=== PATIENT | female | born 1960 | race Caucasian/White ===

== ENCOUNTER 2016-06-22 14:35 | Inpatient (IN) | payer OTHER ==
[~2016-06-22] VITALS: Ht 170.2 cm; Wt 80.7 kg
--- NOTE | ~2016-06-22 | EKG ---
[place] [address] [facility] [place] [address] ELECTROCARDIOGRAM REPORT Name: LIZ ARMIJO Room #: 214-P ADM IN M.R.#: [id number] Admission: 06/22/16 Attend Phys: Kelly Ferguson Discharge: Date of : 64 Report #: [id number] THIS REPORT FOR: //name// [facility] ED Test Date: 2016-06-22 Test Time: 16:31:41 Pat Name: LIZ ARMIJO Department: Room: 214 Gender: F Requisition Approver: [id number] : 1960 Requested By: Rogers Munoz Order Number: [id number] MD: Gian Sheldon Measurements Intervals [place] Rate: 68 P: 71 GA: 157 QRS: 17 QRSD: 90 T: 26 QT: 426 QTc: 454 Interpretive Statements Sinus rhythm No significant abnormality Compared to ECG 05/02/2016 12:01:15 No significant change was found Electronically Signed On 06-23-2016 14:23:42 GUN EXAMINER by Gian Sheldon [email or web address] <ELECTRONICALLY SIGNED> By: Gian Sheldon MD, [facility] 06/23/16 1423 30 30 Gian Sheldon MD, [facility] /EPI
--- NOTE | ~2016-06-22 | EKG ---
[address] [employer] [place] [address] ELECTROCARDIOGRAM REPORT Name: LIZ ARMIJO Room #: 214-P ADM IN M.R.#: [id number] Admission: 06/22/16 Attend Phys: Kelly Ferguson Discharge: Date of : 64 Report #: [id number] THIS REPORT FOR: //name// [facility] ED Test Date: 2016-06-22 Test Time: 15:12:02 Pat Name: LIZ ARMIJO Department: Room: 214 Gender: F Director Regulatory Agency: [id number] : 1960 Requested By: Rogers Munoz Order Number: [id number] MD: Gian Sheldon Measurements Intervals [place] Rate: 70 P: 68 [place]: 152 QRS: 3 QRSD: 88 T: 30 QT: 417 QTc: 450 Interpretive Statements Sinus rhythm No significant abnormality Compared to ECG 05/02/2016 12:01:15 No significant change was found Electronically Signed On 06-23-2016 14:21:32 ASPHALT RAKER by Gian Sheldon [email or web address] <ELECTRONICALLY SIGNED> By: Gian Sheldon MD, [facility] 06/23/16 1421 11 11 Gian Sheldon MD, [facility] /EPI
[~2016-06-22 14:35] MED LIST: ALBUTEROL INH; ALBUTEROL2.5 MG/0.5 INH; ALPRAZOLAM; ALPRAZOLAM 0.50.5 M1; ALPRAZOLAM PO; AMBIEN; AMBIEN PO; AMITRIPTYLINE H10 M3 PO; AMITRIPTYLINE H25 M2 PO; CALCIUM + D SO1 EACH PO; CIPROFLOXACIN500 M3 PO; CLONIDINE HCL0.1 MG PO; COREG PO; COUMADIN PO; CYCLOBENZAPRINE10 MG PO; CYMBALTA; CYMBALTA20 MG PO; CYMBALTA60 MG PO; DUONEB 2.5-0.5 M3 ML INH; FLAX OIL1000 MG; FLEXERIL PO; HYDROCODON-ACE1 EAC7 PO; HYDROCODONE-AP1 EAC6 PO; HYDROXYZINE HCL25 M1; IBUPROFEN 600600 M1 PO; IBUPROFEN 800800 M1 PO; INDOMETHACIN 2525 MG PO; K-DUR 20 MEQ T20 MEQ PO; KLOR-CON 1010 MEQ PO; LEVAQUIN 500 M500 M2 PO; LEVAQUIN 750 M750 MG PO; LISINOPRIL20 MG PO; LOVENOX SC; MIRALAX17 GM PO; MIRALAX255 GM PO; MIRTAZAPINE45 MG PO; NAPROSYN500 MG PO; NITROGLYCERIN0.4 MG SUBLING; NORCO 5-325 TA1 EACH PO; OMEGA-3100 MG; ONDANSETRON HCL4 M2 PO; OSELB75 PO; PERCOCET 5-3251 EACH PO; PHENERGAN 25 MG25 M1 PO; POTASSIUM20 PO; PRENATAL PLUS1 EACH PO; PROAIR HFA8.5 GM; PROAIR HFA8.5 GM INH; PROMETHAZINE/C118 ML PO; PROTONIX 20 MG20 M1 PO; REMERON15 MG PO; REMERON45 MG PO; ROBAXIN 750 MG750 M1 PO; ROBITUSSIN100 MG/53; SENNA PO; SIMVASTATIN10 MG; SPIRIVA INH; TESSALON PERLE100 MG PO; TYLENOL325 MG PO; VALIUM2 MG PO; VENTOLIN HFA 1818 GM INH; VITAMIN B-12500 MCG PO; VITAMIN B12-FO1 EAC1 PO; XANAX1 MG PO; XARELTO10 M1; XARELTO20 MG PO; ZANTAC 150MG T150 M1 PO; ZANTAC 150MG T150 MG PO; ZOFRAN ODT4 MG PO; ZOFRAN4 MG PO; ZYRTEC PO; ZYRTEC10 M2 PO
[2016-06-22 14:37] VITALS: BP 134/86
[2016-06-22 15:21] LABS: ABSOLUTE NEUTROPHILS 3.7 thou/uL (1.4-8.2); BASOPHILS 0.7 % (0.0-2.0); EOSINOPHILS 3.9 % (0.0-3.0); HEMATOCRIT 38.3 % (37.0-47.0); HEMOGLOBIN 13.3 gm/dL (12.0-15.0); LYMPHOCYTES 30.9 % (24.0-44.0); MCH 28.7 pg (26.0-34.0); MCHC 34.6 % (28.0-37.0); MCV 82.8 fL (80.0-100.0); MONOCYTES 6.4 % (1.0-8.0); PLATELET COUNT 112 thou/uL (150-400); POLYS 58.1 % (36.0-66.0); RBC 4.63 mil/uL (4.20-5.00); RDW 12.9 % (10.5-14.5); WBC 6.3 thou/uL (4.0-11.0)
[2016-06-22 15:25] LABS: MANUAL DIFF NO
[2016-06-22 15:31] LABS: CALCIUM 9.2 mg/dL (8.5-10.1); CREATININE 0.8 mg/dL (0.6-1.3)
[2016-06-22 15:32] LABS: POTASSIUM 4.8 mmol/L (3.5-5.1)
[2016-06-22 16:04] LABS: ALBUMIN 3.8 g/dL (3.4-5.0); TOTAL BILIRUBIN 0.5 mg/dL (<0.1-1.0); TOTAL PROTEIN 7.6 g/dL (6.4-8.2); TROPONIN-I 0.16 ng/mL (<0.04-0.07)
[2016-06-22 18:46] VITALS: BP 149/82
[2016-06-22 23:34] VITALS: BP 112/78
[2016-06-23 04:08] VITALS: BP 110/65
[2016-06-23 05:15] LABS: ALBUMIN 3.2 g/dL (3.4-5.0); ALKALINE PHOSPHATASE 79 U/L (46-116); ANION GAP 8 mmol/L (7-16); BUN 18 mg/dL (7-18); CALCIUM 8.4 mg/dL (8.5-10.1); CHLORIDE 107 mmol/L (98-107); CHOLESTEROL 141 mg/dL (<200); CO2 29 mmol/L (21-32); GLUCOSE 78 mg/dL (70-99); HDL CHOLESTEROL 43 mg/dL (>40); LDL CHOLESTEROL 83 mg/dL (<100); POTASSIUM 4.3 mmol/L (3.5-5.1); SGOT 7 U/L (15-37); SGPT 13 U/L (30-65); SODIUM 144 mmol/L (136-145); TC:HDL 3.3 Ratio (Not establshd); TOTAL BILIRUBIN 0.4 mg/dL (<0.1-1.0); TOTAL PROTEIN 5.9 g/dL (6.4-8.2); TRIGLYCERIDE 79 mg/dL (<150); VLDL 16 mg/dL (<40)
[2016-06-23 05:18] LABS: SERUM ASSESSMENT Clear
[2016-06-23 10:15] VITALS: BP 106/65
[2016-06-23] MEDS ORDERED: CYCLOBENZAPRINE5 MG PO (10:21)
[2016-06-23 11:43] VITALS: BP 127/73
[2016-06-23 13:02] VITALS: BP 127/73
[2016-06-23 13:20] VITALS: BP 127/73
[2016-06-23 13:23] VITALS: BP 127/73
[2016-07-28] MEDS ORDERED: LEVAQUIN 750 M750 MG PO (18:24)
[2016-08-17] MEDS ORDERED: ALEVE220 MG PO (16:34)
[2016-08-17] MEDS ORDERED: TESSALON PERLE100 MG PO (16:34)
== END 2016-06-23 14:45 | disposition home or self-care (01) | DRG 281 ==
LOC: ER 14:35 → EROBS 17:19 → ER 17:19 → EROBS 18:14 → 2N 18:14
PROVIDERS: Emergency Medicine; Hospitalist
DX: I21.3 ST elevation (STEMI) myocardial infarction of unspecified site (principal); E44.1 Mild protein-calorie malnutrition; F41.9 Anxiety disorder, unspecified; J44.9 Chronic obstructive pulmonary disease, unspecified; S13.9XXA Sprain of joints and ligaments of unspecified parts of neck, initial encounter; F17.210 Nicotine dependence, cigarettes, uncomplicated; M79.2 Neuralgia and neuritis, unspecified; I50.9 Heart failure, unspecified; Z86.711 Personal history of pulmonary embolism; Z88.1 Allergy status to other antibiotic agents; Z88.8 Allergy status to other drugs, medicaments and biological substances; I25.2 Old myocardial infarction; Z90.49 Acquired absence of other specified parts of digestive tract; Z87.01 Personal history of pneumonia (recurrent); Z88.2 Allergy status to sulfonamides
CPT/HCPCS: 10081

== ENCOUNTER 2017-03-21 15:08 | Observation (INO) | payer OTHER ==
[~2017-03-21] VITALS: Ht 170.2 cm; Wt 85.9 kg
--- NOTE | ~2017-03-21 | H ---
[facility] [place] [address] HISTORY AND PHYSICAL Name: LIZ ARMIJO Room #: 211-P [facility]..#: [id number] Admission: 03/21/17 Attend Phys: Wolf Landa MD Discharge: Date of : 64 Report #: [id number] THIS REPORT FOR: //name// CC: SHAQUILLE physician/PCP Wolf Landa DATE OF SERVICE: 03/21/2017 CHIEF COMPLAINT: Shortness of breath, chest pain. HISTORY OF PRESENT ILLNESS: The patient is a 57-year-old female with history of hypertension, coronary artery disease status post ID, history of COPD who presented to the Emergency Room complaining of cough with expectoration, chest pain and shortness of breath. Symptoms have been ongoing over the last 1 week. She has had cough with yellow to brown sputum. No history of any fever or chills. Workup in the Emergency Room included a chest x-ray which showed no acute process. EKG showed no acute abnormality. Troponin was mildly elevated. Initial troponin was 0.08 and repeat was 0.16. The patient has had intermittent pain over the retrosternal area primarily with coughing. She has had mild shortness of breath. She does have history of PE and has been on Xarelto. PAST MEDICAL HISTORY: Significant for: 1. Hypertension, history of CHF, history of PE on Xarelto. 2. History of anxiety, depression. 3. History of COPD. 4. 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 ALLERGIES: ALLERGIC TO SULFA, PREDNISONE, AND AMOXICILLIN. Please look at the nursing documentation. HOME MEDICATIONS: Reviewed, please look at the nursing documentation for home meds. Home meds were reviewed. SOCIAL HISTORY: Smokes half a pack a day. No alcohol abuse or illicit drug abuse. REVIEW OF SYSTEMS: CONSTITUTIONAL: No recent weight loss, weight gain. No fever or chills. EYES: No change in vision. THROAT: Denies any sore throat. CARDIOVASCULAR: As above. RESPIRATORY: As above. GASTROINTESTINAL: She did have some nausea, but no vomiting, no diarrhea, no abdominal pain. [facility] [address] [place] [address] HISTORY AND PHYSICAL Name: LIZ ARMIJO Room [facility]: [facility]..#: [id number] Admission: 03/21/17 Attend Phys: Wolf Landa MD Discharge: Date of : 64 Report #: [id number] GENITOURINARY: No dysuria, hematuria. NEUROLOGIC: No focal numbness or weakness of the extremity. PSYCHIATRIC: No anxiety or depression. A 12-point review of system is negative other than the positive and negative dictated in the history of present illness and the review of system. PHYSICAL EXAMINATION: VITAL SIGNS: Reviewed. Blood pressure is 133/81, heart rate is 82 per minute, afebrile. GENERAL: The patient is awake and alert, not in acute respiratory distress. EYES: Pupils equal, reactive to light, nonicteric, conjunctivae. THROAT: Mildly dry oral mucosa. NECK: Supple, no JVD, no bruit, no lymphadenopathy. CARDIOVASCULAR SYSTEM: S1, S2 heard, no S3. There is systolic murmur in the aortic area. CHEST: Bilateral air entry equally present on both sides. There are bilateral scattered wheeze noted. ABDOMEN: Soft, bowel sounds present, no mass, no organomegaly, no tenderness. PERIPHERY: No pedal edema. No calf tenderness. Dorsalis pedis 1+. NEUROLOGICAL: No gross motor or sensory deficit. LABORATORY DATA: Reviewed. EKG showed no acute ST or T-wave changes. Troponin 0.08 and 0.16. White count 6.7, normal hemoglobin and hematocrit, platelet is low at 76 and she has been chronically low at 76. INR is 1.2. BUN and creatinine are within normal limits. AST and ALT are within normal limit. Chest x-ray showed no acute abnormality. ASSESSMENT: 1. Acute bronchitis. The patient will be continued on DuoNebs and levofloxacin. 2. Elevated troponin could be stress related. We will get serial troponin. The patient will be admitted to telemetry floor. Cardiology has been consulted. We will obtain echocardiogram to evaluate left ventricular function. She will be continued on aspirin and Xarelto. 3. History of pulmonary embolism, on Xarelto, which will be continued. 4. History of hypertension. The patient will be continued on present home medication. We will monitor. 5. Deep venous thrombosis prophylaxis. The patient is already on Xarelto. 6. Chronic obstructive pulmonary disease/tobaccoism. The patient has been strongly advised to stop smoking. 7. History of coronary artery disease with myocardial infarction in 2016. The patient will be on aspirin . 8. Chronic thrombocytopenia, unknown etiology. [facility] [address] [place] [address] HISTORY AND PHYSICAL Name: LIZ ARMIJO Room #: 211-P [facility] MStefanieRStefanie#: [id number] Admission: 03/21/17 Attend Phys: Wolf Landa MD Discharge: Date of : 64 Report #: [id number] Treatment plan has been explained to the patient in detail. <ELECTRONICALLY SIGNED> By: Wolf Landa MD 03/22/17 1353 1855 1944 Wolf Landa MD /nt
--- NOTE | ~2017-03-21 | 2DMMODE ---
[facility] [address] [place] [address] 2 D/M-MODE ECHOCARDIOGRAM Name: LIZ ARMIJO Room #: 211-P ADM IN M.R.#: [id number] Admission: 03/21/17 Attend Phys: Angeline Laguna Discharge: Date of : 64 Date of Service: 03/22/17 1404 Report #: [id number] THIS REPORT FOR: //name// APPROVED REPORT Study performed: 03/22/2017 11:45:05 EXAM: Comprehensive 2D, Doppler, and color-flow Echocardiogram Patient Location: Bedside Room #: 211 Status: on-call BSA: 1.95 HR: 65 bpm BP: 138/73 mmHg Rhythm: NSR Other Information Study Quality: Good Risk Factors: Cardiac Risk Factors: HTN, Smoking Indications COPD Dyspnea CAD Chest Pain Elevated Troponin 2D Dimensions LVEF(%): 65.00 (>50%) IVSd: 11.81 (7-11mm) LVOT Diam: 21.00 (18-24mm) LVDd: 43.95 mm PWd: 12.24 (7-11mm) Ascending Ao: 32.78 (22-36mm) LVDs: 32.45 (25-40mm) Aortic Root: 29.89 mm LV Single Plane 4CH: 68.77 % LV Single Plane 2CH: 67.06 % Rendon's LVEF: 67.92 % Biplane EF: 68.2 % Volumes Left Atrial Volume (Systole) Single Plane 4CH: 38.51 mL Single Plane 2CH: 50.75 mL LA ESV Index: 25.00 mL/m2 [facility] [place] [address] [place] [address] 2 D/M-MODE ECHOCARDIOGRAM Name: LIZ ARMIJO Room #: 211-P ADM IN .R.#: [id number] Admission: 03/21/17 Attend Phys: Angeline Laguna Discharge: Date of : 64 Date of Service: 03/22/17 1404 Report #: [id number] Aortic Valve AoV Peak Paddy.: 3.08 m/s AO Peak Gr.: 38.47 mmHg LVOT Max P.44 mmHg AO Mean Gr.: 21.67 mmHg AO V2 Mean: 2.24 m/s LVOT Max V: 1.05 m/s AO V2 VTI: 71.24 cm AIDA Vmax: 1.20 cm2 AI Vmax: 4.17 m/s AI Leslie: 2.25 m/s2 AI PHT: 538.24 ms Mitral Valve E/A Ratio: 0.8 MV Decel. Time: 242.09 ms MV E Max Paddy.: 0.71 m/s MV A Paddy.: 0.86 m/s MV PHT: 70.20 ms IVRT: 83.04 ms TDI E/Lateral E': 14.20 E/Medial E': 17.75 Medial E' Paddy.: 0.04 m/s Lateral E' Paddy.: 0.05 m/s Pulmonary Valve PV Peak Paddy.: 0.93 m/s PV Peak Gr.: 3.49 mmHg Pulmonary Vein P Vein S: 0.64 m/s P Vein A: 0.28 m/s P Vein D: 0.42 m/s P Vein A Dur.: 152.2 msec P Vein S/D Ratio: 1.52 Tricuspid Valve TR Peak Paddy.: 2.27 m/s RAP Estimate: 5.00 mmHg TR Peak Gr.: 20.69 mmHg PA Pressure: 26.00 mmHg Left Ventricle The left ventricle is normal size. There is normal LV segmental wall motion. Mild concentric left ventricular hypertrophy. Left ventricular systolic function is normal. The left ventricular ejection fraction is within the normal range. LVEF is 65%. Grade I - abnormal relaxation pattern. Right Ventricle The right ventricle is normal size. The right ventricular systolic [facility] [address] [place] [address] 2 D/M-MODE ECHOCARDIOGRAM Name: ARMIJOLIZ VICTOR MANUEL Room #: 211-P ADM IN M.R.#: [id number] Admission: 03/21/17 Attend Phys: Angeline Laguna Discharge: Date of : 64 Date of Service: 03/22/17 1404 Report #: [id number] function is normal. Atria The left atrium size is normal. The right atrium size is normal. Aortic Valve Aortic valve leaflets are moderately thickened. Mild to moderate aortic regurgitation. Mild aortic stenosis. Mitral Valve The mitral valve is normal in structure. Mild mitral regurgitation. No evidence of mitral valve stenosis. Tricuspid Valve The tricuspid valve is normal in structure. Trace to mild tricuspid regurgitation. Pulmonic Valve The pulmonary valve is normal in structure. There is no pulmonic valvular regurgitation. Great Vessels The aortic root is normal in size. IVC is normal in size and collapses with >50% inspiration Pericardium There is no pericardial effusion. <Conclusion> The left ventricle is normal size. Mild concentric left ventricular hypertrophy. Left ventricular systolic function is normal. Grade I - abnormal relaxation pattern. The right ventricle is normal size. Aortic valve leaflets are moderately thickened. Mild to moderate aortic regurgitation. Mild aortic stenosis. Mild mitral regurgitation. <ELECTRONICALLY SIGNED> By: Bull Morales MD 03/22/17 1404 1404 1404 Bull Morales MD /INF
--- NOTE | ~2017-03-21 | HC ---
[facility] [place] [address] CONSULTATION Name: LIZ ARMIJO Room #: 211-P [facility]..#: [id number] Admission: 03/21/17 Attend Phys: Wolf Landa MD Discharge: Date of : 64 Report #: [id number] THIS REPORT FOR: //name// CC: SHAQUILLE physician/PCP Wolf Landa DATE OF SERVICE: 03/22/2017 INDICATION: Dyspnea, chest pain. HISTORY OF PRESENT ILLNESS: This is a 57-year-old female presenting with increasing dyspnea and chills for the past one week. She describes a constant cough, no sputum production. However, at times the cough was severe. She reports having some chest and abdominal discomfort, typically with coughing and palpation over the area. There is no history of nausea or diarrhea. She denies any history of PND or orthopnea. PAST MEDICAL HISTORY: Cardiac catheterization in June [address] Dallas revealed minimal disease. Echo in August 2015 revealed normal LV systolic function, [id number]-cobphouo aortic insufficiency. She has a history of hypercoagulable state/pulmonary emboli, on chronic anticoagulation therapy. History of COPD, anxiety disorder, hypertension. ALLERGIES: Include SULFA, AMOXICILLIN, PREDNISONE. HOME MEDICATIONS: Please see the MAR for full details. SOCIAL HISTORY: Positive tobacco use, half a pack per day. FAMILY HISTORY: Negative for premature CAD. REVIEW OF SYSTEMS: A full 10-point review of systems performed. Only the pertinent positives and negatives are described in the HPI. PHYSICAL EXAMINATION: VITAL SIGNS: Blood pressure is 130/70, heart rate is 70 beats per minute. GENERAL APPEARANCE: A well-developed, well-nourished female in no acute respiratory distress. HEAD AND EYES: Normocephalic. Sclerae anicteric. ENT: Oral mucosa moist. NECK: Supple, no JVD. LUNGS: Crackles at the bases. CARDIAC: Regular rate and rhythm. S1, S2 positive. ABDOMEN: Soft, nontender. Bowel sounds positive. EXTREMITIES: No cyanosis. Trace edema. [facility] [address] [place] [address] CONSULTATION Name: LIZ ARMIJO Room #: [facility] M..#: [id number] Admission: 03/21/17 Attend Phys: Wolf Landa MD Discharge: Date of : 64 Report #: [id number] ECG reveals sinus rhythm, otherwise unremarkable. LABORATORY VALUES: Peak troponin is 0.37. White count is 4.5, hemoglobin is 12.2. Creatinine is 1.1. IMPRESSION AND PLAN: 1. Respiratory failure/chronic obstructive pulmonary disease/bronchitis. Continue with antibiotics and inhaler. 2. Minimal troponin elevation, with a negative cardiac catheterization a year ago. She has had previous hospital admissions, found to have minimally elevated troponin level, the significance is unclear. Her complaints of chest pains are more likely related to a musculoskeletal etiology. The ECG is unremarkable. I do not believe a cardiac workup is indicated at this time. We will obtain an echocardiogram. 3. History of pulmonary emboli, hypercoagulable state. Continue with Xarelto. 4. Hypertension. Continue with medications. 5. Tobacco use. Complete smoking cessation is recommended. Thank you for allowing me to participate in the care of your patient. <ELECTRONICALLY SIGNED> By: Bull Morales MD 03/23/17 0805 0950 1056 Bull Morales MD /nt
--- NOTE | ~2017-03-21 | EKG ---
[address] [address] ELECTROCARDIOGRAM REPORT Name: ZOFIALIZ Room #: 211-[facility]#: [id number] Admission: 03/21/17 Attend Phys: Wolf Landa MD Discharge: 03/23/17 Date of : 64 Report #: [id number] THIS REPORT FOR: //name// [facility] ED Test Date: 2017-03-21 Test Time: 19:50:07 Pat Name: LIZ ARMIJO Department: Room: 211 Gender: F Remote Coders: LALITO : 1960 Requested By: Wolf Landa Order Number: [id number] MD: Homero Owen Measurements Intervals [place] Rate: 67 P: 65 DE: 159 QRS: 5 QRSD: 98 T: 12 QT: 444 QTc: 469 Interpretive Statements Sinus rhythm Compared to ECG 03/21/2017 16:34:21 No significant changes Electronically Signed On 03-23-2017 23:25:06 CDT by Homero Owen [email or web address] <ELECTRONICALLY SIGNED> By: Homero Owen MD 03/23/17 2325 1950 1950 Homero Owen MD /EPI
--- NOTE | ~2017-03-21 | EKG ---
[address] [address] ELECTROCARDIOGRAM REPORT Name: LIZ ARMIJO Room #: 211-P [facility]#: [id number] Admission: 03/21/17 Attend Phys: Wolf Landa MD Discharge: Date of : 64 Report #: [id number] THIS REPORT FOR: //name// [facility] ED Test Date: 2017-03-21 Test Time: 16:34:21 Pat Name: LIZ ARMIJO Department: Room: 211 Gender: F Country Singer: CHOLO : 1960 Requested By: Lili Aguirre Order Number: [id number] MD: Homero Owen Measurements Intervals [place] Rate: 70 P: 63 [place]: 160 QRS: -2 QRSD: 107 T: 16 QT: 427 QTc: 461 Interpretive Statements Sinus rhythm Consider left atrial enlargement Compared to ECG 08/17/2016 13:21:40 No significant changes Electronically Signed On 03-21-2017 21:07:10 CDT by Homero Owen [email or web address] <ELECTRONICALLY SIGNED> By: Homero Owen MD 03/21/172106 163 33 Homero Owen MD /CABRERA
[~2017-03-21 15:08] MED LIST changes: +ALEVE220 MG PO; +CYCLOBENZAPRINE5 MG PO
[2017-03-21 15:12] VITALS: BP 133/81
[2017-03-21 15:48] LABS: ABSOLUTE NEUTROPHILS 4.2 thou/uL (1.4-8.2); BASOPHILS 1.1 % (0.0-2.0); EOSINOPHILS 3.7 % (0.0-3.0); HEMATOCRIT 38.3 % (37.0-47.0); HEMOGLOBIN 13.1 gm/dL (12.0-15.0); LYMPHOCYTES 22.4 % (24.0-44.0); MCH 28.9 pg (26.0-34.0); MCHC 34.2 g/dL (28.0-37.0); MCV 84.5 fL (80.0-100.0); MONOCYTES 5.5 % (1.0-8.0); PLATELET COUNT 76 thou/uL (150-400); POLYS 67.3 % (36.0-66.0); RBC 4.53 mil/uL (4.20-5.00); RDW 13.9 % (10.5-14.5); WBC 6.3 thou/uL (4.0-11.0)
[2017-03-21 16:01] LABS: CALCIUM 9.3 mg/dL (8.5-10.1); POTASSIUM 3.6 mmol/L (3.5-5.1)
[2017-03-21 16:03] LABS: MANUAL DIFF NO
[2017-03-21 16:09] LABS: ALBUMIN 3.7 g/dL (3.4-5.0); TOTAL BILIRUBIN 0.3 mg/dL (<0.1-1.0); TOTAL PROTEIN 7.3 g/dL (6.4-8.2); TROPONIN-I 0.08 ng/mL (<0.04-0.07)
[2017-03-21 16:28] LABS: INR 1.2; PROTIME 12.2 Seconds (9.3-11.4)
[2017-03-21] MEDS ORDERED: TUSSIONEX PENN115 ML PO (17:51)
[2017-03-21 20:14] VITALS: BP 135/62
[2017-03-21 20:30] VITALS: BP 140/72
[2017-03-22 00:45] VITALS: BP 127/57
[2017-03-22 04:45] VITALS: BP 127/66
[2017-03-22 07:04] LABS: ABSOLUTE NEUTROPHILS 2.2 thou/uL (1.4-8.2); BASOPHILS 1.3 % (0.0-2.0); EOSINOPHILS 5.1 % (0.0-3.0); HEMOGLOBIN 12.2 gm/dL (12.0-15.0); LYMPHOCYTES 36.2 % (24.0-44.0); MCH 28.8 pg (26.0-34.0); MCHC 33.8 g/dL (28.0-37.0); MCV 85.3 fL (80.0-100.0); MONOCYTES 7.6 % (1.0-8.0); POLYS 49.8 % (36.0-66.0); RBC 4.23 mil/uL (4.20-5.00); RDW 13.7 % (10.5-14.5); WBC 4.5 thou/uL (4.0-11.0)
[2017-03-22 07:09] LABS: MANUAL DIFF NO
[2017-03-22 07:24] LABS: ANION GAP 6 mmol/L (7-16); BUN 17 mg/dL (7-18); CALCIUM 8.7 mg/dL (8.5-10.1); CHLORIDE 108 mmol/L (98-107); CHOLESTEROL 176 mg/dL (<200); CO2 27 mmol/L (21-32); CREATININE 1.1 mg/dL (0.6-1.0); GLUCOSE 92 mg/dL (74-106); HDL CHOLESTEROL 36 mg/dL (>40); LDL CHOLESTEROL 110 mg/dL (<100); MAGNESIUM 1.8 mg/dL (1.8-2.4); POTASSIUM 4.2 mmol/L (3.5-5.1); SODIUM 141 mmol/L (136-145); TC:HDL 4.9 Ratio (Not establshd); TRIGLYCERIDE 154 mg/dL (<150); VLDL 31 mg/dL (<40)
[2017-03-22 08:10] VITALS: BP 138/73
[2017-03-22 08:48] LABS: PLATELET COUNT 73 thou/uL (150-400)
[2017-03-22 12:11] VITALS: BP 136/66
[2017-03-22 16:30] VITALS: BP 129/67
[2017-03-22 20:16] VITALS: BP 152/80
[2017-03-23 03:40] LABS: ABSOLUTE NEUTROPHILS 2.7 thou/uL (1.4-8.2); BASOPHILS 0.8 % (0.0-2.0); EOSINOPHILS 5.5 % (0.0-3.0); HEMATOCRIT 33.9 % (37.0-47.0); HEMOGLOBIN 11.4 gm/dL (12.0-15.0); LYMPHOCYTES 31.3 % (24.0-44.0); MCH 28.9 pg (26.0-34.0); MCHC 33.8 g/dL (28.0-37.0); MCV 85.6 fL (80.0-100.0); MONOCYTES 7.7 % (1.0-8.0); PLATELET COUNT 77 thou/uL (150-400); POLYS 54.7 % (36.0-66.0); RBC 3.96 mil/uL (4.20-5.00); RDW 13.6 % (10.5-14.5)
[2017-03-23 03:41] LABS: MANUAL DIFF NO
[2017-03-23 03:46] LABS: CALCIUM 8.8 mg/dL (8.5-10.1); CREATININE 1.2 mg/dL (0.6-1.0); POTASSIUM 4.2 mmol/L (3.5-5.1)
[2017-03-23 04:08] VITALS: BP 146/71
[2017-03-23 08:30] VITALS: BP 147/80
[2017-03-23] MEDS ORDERED: GUAIFENESIN/COD10 M1 PO (09:07)
[2017-03-23] MEDS ORDERED: LEVAQUIN 500 M500 M1 PO (09:07)
[2017-03-23] MEDS ORDERED: HYDROCODON-ACE1 EAC7 PO (09:07)
[2017-03-23] MEDS ORDERED: ADULT LOW DOSE81 MG PO (09:07)
== END 2017-03-23 11:07 | disposition home or self-care (01) ==
LOC: ER 15:08 → EROBS 18:24 → 2N 20:15
PROVIDERS: Internal Medicine; Physician Assistant
DX: J20.9 Acute bronchitis, unspecified (principal); J44.0 Chronic obstructive pulmonary disease with (acute) lower respiratory infection; R79.89 Other specified abnormal findings of blood chemistry; D69.6 Thrombocytopenia, unspecified; I25.10 Atherosclerotic heart disease of native coronary artery without angina pectoris; I25.2 Old myocardial infarction; I11.0 Hypertensive heart disease with heart failure; I50.9 Heart failure, unspecified; F41.9 Anxiety disorder, unspecified; F17.210 Nicotine dependence, cigarettes, uncomplicated; Z98.890 Other specified postprocedural states

== ENCOUNTER 2017-03-25 01:11 | Emergency (ER) | payer OTHER ==
[~2017-03-25] VITALS: Ht 170.2 cm; Wt 83.9 kg
[~2017-03-25 01:11] MED LIST changes: +ADULT LOW DOSE81 MG PO; +GUAIFENESIN/COD10 M1 PO; +LEVAQUIN 500 M500 M1 PO; +TUSSIONEX PENN115 ML PO
[2017-03-25 04:00] LABS: HEMATOCRIT 36.8 % (37.0-47.0); HEMOGLOBIN 12.7 gm/dL (12.0-15.0); MCH 29.2 pg (26.0-34.0); MCHC 34.5 g/dL (28.0-37.0); MCV 84.7 fL (80.0-100.0); RBC 4.35 mil/uL (4.20-5.00); RDW 13.7 % (10.5-14.5); WBC 7.1 thou/uL (4.0-11.0)
[2017-03-25 04:08] LABS: APTT 62.3 Seconds (24.5-32.8); INR 1.2; PROTIME 12.1 Seconds (9.3-11.4)
[2017-03-25] MEDS ORDERED: ALLEGRA ALLERG180 MG PO (04:22)
[2017-03-25] MEDS ORDERED: PEPCID20 MG PO (04:22)
== END 2017-03-25 04:40 | disposition home or self-care (01) ==
LOC: ER 01:11
PROVIDERS: Emergency Medicine
DX: L29.9 Pruritus, unspecified (principal); R23.3 Spontaneous ecchymoses; D69.6 Thrombocytopenia, unspecified; I50.9 Heart failure, unspecified; F41.9 Anxiety disorder, unspecified; F32.9 Major depressive disorder, single episode, unspecified; J45.909 Unspecified asthma, uncomplicated; J44.9 Chronic obstructive pulmonary disease, unspecified; F17.210 Nicotine dependence, cigarettes, uncomplicated; Z95.5 Presence of coronary angioplasty implant and graft; Z79.01 Long term (current) use of anticoagulants; Z86.711 Personal history of pulmonary embolism; Z98.890 Other specified postprocedural states; Z88.1 Allergy status to other antibiotic agents; Z88.2 Allergy status to sulfonamides; Z88.8 Allergy status to other drugs, medicaments and biological substances

== ENCOUNTER 2017-10-21 00:49 | Emergency (ER) | payer OTHER ==
[~2017-10-21] VITALS: Ht 167.6 cm; Wt 71.7 kg
[~2017-10-21 00:49] MED LIST changes: +ALLEGRA ALLERG180 MG PO; +PEPCID20 MG PO
[2017-10-21] MEDS ORDERED: NORFLEX100 MG PO (02:58)
[2017-10-21] MEDS ORDERED: ACETAMINOPHEN-1 EAC1 PO (02:58)
== END 2017-10-21 04:30 | disposition home or self-care (01) ==
LOC: ER 00:49
DX: S13.8XXA Sprain of joints and ligaments of other parts of neck, initial encounter (principal); S20.229A Contusion of unspecified back wall of thorax, initial encounter; I50.9 Heart failure, unspecified; F41.9 Anxiety disorder, unspecified; F32.9 Major depressive disorder, single episode, unspecified; J44.9 Chronic obstructive pulmonary disease, unspecified; Z90.49 Acquired absence of other specified parts of digestive tract; F17.210 Nicotine dependence, cigarettes, uncomplicated; Z88.1 Allergy status to other antibiotic agents; Z88.2 Allergy status to sulfonamides; Y04.8XXA Assault by other bodily force, initial encounter; Y93.89 Activity, other specified; Y92.89 Other specified places as the place of occurrence of the external cause; Y99.8 Other external cause status

== ENCOUNTER 2018-03-27 10:24 | Emergency (ER) | payer OTHER ==
[~2018-03-27] VITALS: Ht 170.2 cm; Wt 65.8 kg
--- NOTE | ~2018-03-27 | EKG ---
[address] [place] [address] ELECTROCARDIOGRAM REPORT Name: LIZ ARMIJO Room #: DEP [facility]#: [id number] Admission: 03/27/18 Attend Phys: Discharge: 03/27/18 Date of : 64 Report #: [id number] THIS REPORT FOR: //name// [facility] ED Test Date: 2018-03-27 Test Time: 10:41:17 Pat Name: LIZ ARMIJO Department: Room: Gender: F Target Aircraft Controller: : 1960 Requested By: Tamia Yuan Order Number: [id number] MD: Gian Sheldon Measurements Intervals [place] Rate: 65 P: 57 [place]: 165 QRS: -4 QRSD: 94 T: 25 QT: 432 QTc: 450 Interpretive Statements Sinus rhythm Baseline wander in lead(s) V1,V2 Compared to ECG 02/12/2018 10:17:04 Sinus bradycardia no longer present Electronically Signed On 03-27-2018 16:43:19 CDT by Gian Sheldon [email or web address] <ELECTRONICALLY SIGNED> By: Gian Sheldon MD, [facility] 03/27/18 1643 1041 1041 Gian Sheldon MD, FAC /EPI
[~2018-03-27 10:24] MED LIST changes: +ACETAMINOPHEN-1 EAC1 PO; +MORPHINE SULFAT15 M3 PO; +NORFLEX100 MG PO
[2018-03-27 11:07] LABS: BASOPHILS 0.9 % (0.0-2.0); EOSINOPHILS 3.6 % (0.0-3.0); HEMATOCRIT 37.1 % (37.0-47.0); HEMOGLOBIN 12.9 gm/dL (12.0-15.0); LYMPHOCYTES 22.7 % (24.0-44.0); MCHC 34.9 g/dL (28.0-37.0); MCV 91.7 fL (80.0-100.0); MONOCYTES 6.7 % (1.0-8.0); POLYS 66.1 % (36.0-66.0); RBC 4.04 mil/uL (4.20-5.00); RDW 13.1 % (10.5-14.5); WBC 6.1 thou/uL (4.0-11.0)
[2018-03-27 11:15] LABS: ANION GAP 7 mmol/L (7-16); BUN 12 mg/dL (7-18); CALCIUM 9.8 mg/dL (8.5-10.1); CHLORIDE 105 mmol/L (98-107); CO2 28 mmol/L (21-32); GLUCOSE 123 mg/dL (74-106); POTASSIUM 3.5 mmol/L (3.5-5.1); SODIUM 140 mmol/L (136-145)
[2018-03-27 11:24] LABS: TROPONIN-I <0.06 ng/mL (<0.06)
[2018-03-27 11:45] LABS: PLATELET COUNT 72 thou/uL (150-400)
[2018-03-27] MEDS ORDERED: NORCO 5-325 TA1 EACH PO (12:50)
== END 2018-03-27 13:29 | disposition home or self-care (01) ==
LOC: ER 10:24
PROVIDERS: Emergency Medicine
DX: J06.9 Acute upper respiratory infection, unspecified (principal); I50.9 Heart failure, unspecified; J44.9 Chronic obstructive pulmonary disease, unspecified; I25.2 Old myocardial infarction; F17.210 Nicotine dependence, cigarettes, uncomplicated; Z86.718 Personal history of other venous thrombosis and embolism; Z86.711 Personal history of pulmonary embolism; Z88.1 Allergy status to other antibiotic agents; Z88.5 Allergy status to narcotic agent; Z88.2 Allergy status to sulfonamides

== ENCOUNTER 2018-06-24 11:25 | Emergency (ER) | payer OTHER ==
[~2018-06-24] VITALS: Ht 170.2 cm; Wt 68.0 kg
[2018-06-24 13:04] VITALS: BP 139/68
[2018-06-24] MEDS ORDERED: NORCO 5-325 TA1 EACH PO (13:17)
== END 2018-06-24 13:35 | disposition home or self-care (01) ==
LOC: ER 11:25
DX: S16.1XXA Strain of muscle, fascia and tendon at neck level, initial encounter (principal); S09.8XXA Other specified injuries of head, initial encounter; I50.9 Heart failure, unspecified; F41.9 Anxiety disorder, unspecified; F32.9 Major depressive disorder, single episode, unspecified; Z90.49 Acquired absence of other specified parts of digestive tract; Z95.5 Presence of coronary angioplasty implant and graft; F17.210 Nicotine dependence, cigarettes, uncomplicated; Z88.1 Allergy status to other antibiotic agents; Z88.2 Allergy status to sulfonamides; Z88.8 Allergy status to other drugs, medicaments and biological substances; W18.2XXA Fall in (into) shower or empty bathtub, initial encounter; Y93.89 Activity, other specified; Y92.89 Other specified places as the place of occurrence of the external cause; Y99.8 Other external cause status

== ENCOUNTER 2018-06-29 15:54 | Emergency (ER) | payer OTHER ==
[~2018-06-29] VITALS: Ht 167.6 cm; Wt 68.0 kg
[2018-06-29] MEDS ORDERED: NORFLEX100 MG PO (16:41)
[2018-06-29 16:56] VITALS: BP 154/69
== END 2018-06-29 16:59 | disposition home or self-care (01) ==
LOC: ER 15:54
DX: S09.90XA Unspecified injury of head, initial encounter (principal); F17.210 Nicotine dependence, cigarettes, uncomplicated; I50.9 Heart failure, unspecified; F32.9 Major depressive disorder, single episode, unspecified; F41.9 Anxiety disorder, unspecified; J44.9 Chronic obstructive pulmonary disease, unspecified; Z90.49 Acquired absence of other specified parts of digestive tract; Z88.1 Allergy status to other antibiotic agents; Z88.2 Allergy status to sulfonamides; Z88.8 Allergy status to other drugs, medicaments and biological substances; Z95.5 Presence of coronary angioplasty implant and graft; W18.39XA Other fall on same level, initial encounter; Y92.89 Other specified places as the place of occurrence of the external cause; Y93.89 Activity, other specified; Y99.8 Other external cause status

== ENCOUNTER 2018-07-08 15:31 | Emergency (ER) | payer OTHER ==
[~2018-07-08] VITALS: Ht 170.2 cm; Wt 68.0 kg
[2018-07-08 16:47] LABS: ABSOLUTE NEUTROPHILS 4.1 thou/uL (1.4-8.2); BASOPHILS 0.9 % (0.0-2.0); EOSINOPHILS 3.2 % (0.0-3.0); HEMATOCRIT 41.9 % (37.0-47.0); HEMOGLOBIN 14.5 gm/dL (12.0-15.0); LYMPHOCYTES 29.5 % (24.0-44.0); MCH 31.1 pg (26.0-34.0); MCHC 34.5 g/dL (28.0-37.0); MCV 90.1 fL (80.0-100.0); MONOCYTES 5.3 % (1.0-8.0); PLATELET COUNT 101 thou/uL (150-400); POLYS 61.1 % (36.0-66.0); RBC 4.65 mil/uL (4.20-5.00); RDW 13.1 % (10.5-14.5); WBC 6.7 thou/uL (4.0-11.0)
[2018-07-08 16:55] LABS: ANION GAP 6 mmol/L (7-16); BUN 14 mg/dL (7-18); CALCIUM 9.4 mg/dL (8.5-10.1); CHLORIDE 103 mmol/L (98-107); CO2 32 mmol/L (21-32); GLUCOSE 91 mg/dL (74-106); POTASSIUM 3.6 mmol/L (3.5-5.1); SODIUM 141 mmol/L (136-145)
[2018-07-08 17:04] LABS: TROPONIN-I <0.06 ng/mL (<0.06)
[2018-07-08 17:45] VITALS: BP 124/71
--- NOTE | 2018-07-09 08:51 | EKG ---
[place] [address] [facility] [employer] [place] [address] ELECTROCARDIOGRAM REPORT Name: LIZ ARMIJO Room #: DEP [facility]#: [id number] Admission: 07/08/18 Attend Phys: Discharge: 07/08/18 Date of : 64 Report #: [id number] THIS REPORT FOR: //name// [facility] ED Test Date: 2018-07-08 Test Time: 16:34:52 Pat Name: LIZ ARMIJO Department: Room: Gender: F Dramatic Teacher: meli : 1960 Requested By: Lili Aguirre Order Number: [id number] MD: Gian Sheldon Measurements Intervals [place] Rate: 68 P: 73 [place]: 161 QRS: 8 QRSD: 92 T: 37 QT: 428 QTc: 456 Interpretive Statements Sinus rhythm No significant abnormality Compared to ECG 03/27/2018 10:41:17 No significant changes Electronically Signed On 07-09-2018 8:51:38 SHOE COVERER by Gian Sheldon [email or web address] <ELECTRONICALLY SIGNED> By: Gian Sheldon MD, [facility] 07/09/18 0851 1634 1634 Gian Sheldon MD, FACC /EPI
== END 2018-07-08 17:49 | disposition home or self-care (01) ==
LOC: ER 15:31
PROVIDERS: Student in an Organized Health Care Education/Training Program
DX: F41.9 Anxiety disorder, unspecified (principal); F43.9 Reaction to severe stress, unspecified; F17.210 Nicotine dependence, cigarettes, uncomplicated; I50.9 Heart failure, unspecified; F32.9 Major depressive disorder, single episode, unspecified; J44.9 Chronic obstructive pulmonary disease, unspecified; Z88.1 Allergy status to other antibiotic agents; Z88.8 Allergy status to other drugs, medicaments and biological substances; Z88.2 Allergy status to sulfonamides; Z90.49 Acquired absence of other specified parts of digestive tract; Z95.5 Presence of coronary angioplasty implant and graft

== ENCOUNTER 2018-08-14 18:25 | Emergency (ER) | payer OTHER ==
[~2018-08-14] VITALS: Ht 167.6 cm; Wt 65.8 kg
[2018-08-14 20:11] LABS: BASOPHILS 0.8 % (0.0-2.0); EOSINOPHILS 2.5 % (0.0-3.0); HEMATOCRIT 37.9 % (37.0-47.0); HEMOGLOBIN 13.1 gm/dL (12.0-15.0); LYMPHOCYTES 29.1 % (24.0-44.0); MCH 30.8 pg (26.0-34.0); MCHC 34.6 g/dL (28.0-37.0); MONOCYTES 6.8 % (1.0-8.0); PLATELET COUNT 98 thou/uL (150-400); POLYS 60.8 % (36.0-66.0); RBC 4.26 mil/uL (4.20-5.00); RDW 12.7 % (10.5-14.5); WBC 6.6 thou/uL (4.0-11.0)
[2018-08-14 20:20] LABS: ANION GAP 7 mmol/L (7-16); BUN 20 mg/dL (7-18); CALCIUM 9.6 mg/dL (8.5-10.1); CHLORIDE 105 mmol/L (98-107); CO2 29 mmol/L (21-32); CREATININE 0.8 mg/dL (0.6-1.0); GLUCOSE 88 mg/dL (74-106); POTASSIUM 3.6 mmol/L (3.5-5.1); SODIUM 141 mmol/L (136-145)
[2018-08-14 20:28] LABS: TROPONIN-I <0.06 ng/mL (<0.06)
[2018-08-14 22:59] VITALS: BP 135/81
--- NOTE | 2018-08-16 19:29 | EKG ---
[place] [address] [facility] [place] [address] ELECTROCARDIOGRAM REPORT Name: ZOFIALIZ [facility] [id number] ������������������ Admission: 08/14/18 ������������������ Attend Phys: Discharge: 08/14/18 ������������������ Date of : 64 Report #: [id number] ����������������������������������������������������������������� [id number] THIS REPORT FOR: //name// [facility] ED Test Date: 2018-08-14 Test Time: 19:55:13 Pat Name: LIZ ARMIJO Department: Room: Gender: F Founder And Chief Executive Officer: : 1960 Requested By: Rao Larkin Order Number: [id number] MD: Hari Dallas Measurements Intervals [place] Rate: 73 P: 84 NM: 158 QRS: 24 QRSD: 96 T: 55 QT: 398 QTc: 439 Interpretive Statements Sinus rhythm Borderline Left atrial enlargement Nonspecific ST-T wave changes Compared to ECG 07/08/2018 16:34:[address]-T wave changes Electronically Signed On 08-16-2018 19:29:50 SALES INCENTIVE ANALYST by Hari Dallas [email or web address] ��������������������������������������������� <ELECTRONICALLY SIGNED> ���������������������������������������� By: Hari Dallas MD ��������������������������������������������� 08/16/181928 54 54 Hari Dallas MD /EPI
== END 2018-08-14 22:59 | disposition home or self-care (01) ==
LOC: ER 18:25
PROVIDERS: Emergency Medicine
DX: I11.0 Hypertensive heart disease with heart failure (principal); I50.9 Heart failure, unspecified; R07.9 Chest pain, unspecified; R51 Headache; J44.9 Chronic obstructive pulmonary disease, unspecified; I25.2 Old myocardial infarction; F17.210 Nicotine dependence, cigarettes, uncomplicated; Z79.01 Long term (current) use of anticoagulants; Z86.711 Personal history of pulmonary embolism; Z88.1 Allergy status to other antibiotic agents; Z88.2 Allergy status to sulfonamides; Z88.5 Allergy status to narcotic agent; Z79.899 Other long term (current) drug therapy

== ENCOUNTER 2018-08-19 18:45 | Emergency (ER) | payer OTHER ==
[~2018-08-19] VITALS: Ht 167.6 cm; Wt 67.1 kg
[2018-08-19] MEDS ORDERED: LISINOPRIL10 MG PO (19:13)
[2018-08-19] MEDS ORDERED: NORCO 5-325 TA1 EACH PO (19:27)
[2018-08-19 20:02] VITALS: BP 142/53
== END 2018-08-19 19:46 | disposition home or self-care (01) ==
LOC: ER 18:45
DX: M25.539 Pain in unspecified wrist (principal); I11.0 Hypertensive heart disease with heart failure; I50.9 Heart failure, unspecified; F41.9 Anxiety disorder, unspecified; F32.9 Major depressive disorder, single episode, unspecified; J44.9 Chronic obstructive pulmonary disease, unspecified; Z90.49 Acquired absence of other specified parts of digestive tract; Z95.5 Presence of coronary angioplasty implant and graft; F17.210 Nicotine dependence, cigarettes, uncomplicated; Z88.1 Allergy status to other antibiotic agents; Z88.2 Allergy status to sulfonamides; Z88.8 Allergy status to other drugs, medicaments and biological substances

== ENCOUNTER 2018-12-07 14:07 | Emergency (ER) | payer OTHER ==
[~2018-12-07] VITALS: Ht 170.2 cm; Wt 68.0 kg
[~2018-12-07 14:07] MED LIST changes: +LISINOPRIL10 MG PO
[2018-12-07 15:46] LABS: URINE BILIRUBIN NEGATIVE (Negative); URINE BLOOD NEGATIVE (Negative); URINE CLARITY CLEAR; URINE COLOR YELLOW; URINE GLUCOSE-RANDOM* NEGATIVE (Negative); URINE KETONES NEGATIVE (Negative); URINE LEUKOCYTES-REFLEX NEGATIVE (Negative); URINE NITRITE-REFLEX NEGATIVE (Negative); URINE PROTEIN (DIPSTICK) NEGATIVE (Negative); URINE UROBILINOGEN 0.2 E.U./dl (0.2-1.0)
[2018-12-07 16:00] LABS: ABSOLUTE NEUTROPHILS 3.5 thou/uL (1.4-8.2); BASOPHILS 0.7 % (0.0-2.0); EOSINOPHILS 2.9 % (0.0-3.0); HEMATOCRIT 40.4 % (37.0-47.0); HEMOGLOBIN 13.6 gm/dL (12.0-15.0); LYMPHOCYTES 32.9 % (24.0-44.0); MCH 30.3 pg (26.0-34.0); MCHC 33.7 g/dL (28.0-37.0); MCV 90.1 fL (80.0-100.0); POLYS 56.5 % (36.0-66.0); RBC 4.49 mil/uL (4.20-5.00); WBC 6.2 thou/uL (4.0-11.0)
[2018-12-07 16:09] LABS: CALCIUM 9.5 mg/dL (8.5-10.1); POTASSIUM 4.1 mmol/L (3.5-5.1)
[2018-12-07 16:15] LABS: TOTAL BILIRUBIN 0.3 mg/dL (<0.1-1.0); TOTAL PROTEIN 8.1 g/dL (6.4-8.2)
[2018-12-07 16:33] LABS: PLATELET COUNT 81 thou/uL (150-400)
[2018-12-07 17:58] VITALS: BP 140/77
--- NOTE | 2018-12-09 07:39 | EKG ---
[address] [address] ELECTROCARDIOGRAM REPORT Name: LIZ ARMIJO Room #: DEP [facility]#: [id number] ������������������ Admission: 12/07/18 ������������������ Attend Phys: Discharge: 12/07/18 ������������������ Date of : 64 Report #: [id number] ����������������������������������������������������������������� [id number] THIS REPORT FOR: //name// [facility] ED Test Date: 2018-12-07 Test Time: 17:33:59 Pat Name: LIZ ARMIJO Department: Room: Gender: F Piano Teacher: SUSAN : 1960 Requested By: Rao Larkin Order Number: [id number] MD: Gian Sheldon Measurements Intervals [place] Rate: 67 P: 71 MD: 169 QRS: 7 QRSD: 95 T: 41 QT: 422 QTc: 446 Interpretive Statements Sinus rhythm Normal tracing Compared to ECG 08/14/2018 19:55:13 No significant change was found Electronically Signed On 12-09-2018 7:38:47 CDT by Gian Sheldon [email or web address] ��������������������������������������������� <ELECTRONICALLY SIGNED> ���������������������������������������� By: Gian Sheldon MD, [facility] ��������������������������������������������� 12/09/18 0738 1733 1733 Gian Sheldon MD, FACC /EPI
== END 2018-12-07 18:01 | disposition home or self-care (01) ==
LOC: ER 14:07
PROVIDERS: Physician Assistant
DX: R19.7 Diarrhea, unspecified (principal); R07.89 Other chest pain; I50.9 Heart failure, unspecified; F41.9 Anxiety disorder, unspecified; F32.9 Major depressive disorder, single episode, unspecified; Z88.1 Allergy status to other antibiotic agents; Z88.2 Allergy status to sulfonamides; Z88.8 Allergy status to other drugs, medicaments and biological substances; Z87.891 Personal history of nicotine dependence; Z87.01 Personal history of pneumonia (recurrent); Z86.711 Personal history of pulmonary embolism

== ENCOUNTER 2019-04-12 12:57 | Emergency (ER) | payer OTHER ==
[~2019-04-12] VITALS: Ht 167.6 cm; Wt 91.2 kg
[2019-04-12] MEDS ORDERED: LEVAQUIN 750 M750 MG PO ×2 (14:43→14:46)
[2019-04-12] MEDS ORDERED: PROMETH-CODEIN 65 ML PO (14:43)
[2019-04-12 15:10] VITALS: BP 117/87
== END 2019-04-12 15:11 | disposition home or self-care (01) ==
LOC: ER 12:57
DX: J44.1 Chronic obstructive pulmonary disease with (acute) exacerbation (principal); I50.9 Heart failure, unspecified; J45.909 Unspecified asthma, uncomplicated; F41.9 Anxiety disorder, unspecified; F32.9 Major depressive disorder, single episode, unspecified; F17.210 Nicotine dependence, cigarettes, uncomplicated; Z90.49 Acquired absence of other specified parts of digestive tract; Z95.5 Presence of coronary angioplasty implant and graft; Z88.1 Allergy status to other antibiotic agents; Z88.2 Allergy status to sulfonamides; Z88.8 Allergy status to other drugs, medicaments and biological substances

== ENCOUNTER 2020-04-02 08:43 | Emergency (ER) | payer OTHER ==
[~2020-04-02] VITALS: Ht 170.2 cm; Wt 63.5 kg
[~2020-04-02 08:43] MED LIST changes: +PROMETH-CODEIN 65 ML PO
[2020-04-02 09:34] LABS: ABSOLUTE NEUTROPHILS 4.5 thou/uL (1.4-8.2); BASOPHILS 0.8 % (0.0-2.0); EOSINOPHILS 2.5 % (0.0-3.0); HEMATOCRIT 38.6 % (37.0-47.0); LYMPHOCYTES 17.8 % (24.0-44.0); MCH 30.6 pg (26.0-34.0); MCHC 33.6 g/dL (28.0-37.0); MONOCYTES 5.8 % (1.0-8.0); POLYS 73.1 % (36.0-66.0); RBC 4.24 mil/uL (4.20-5.00); RDW 13.2 % (10.5-14.5); WBC 6.1 thou/uL (4.0-11.0)
[2020-04-02 09:45] LABS: INR 1.3; PROTIME 12.9 Seconds (9.3-11.4)
[2020-04-02 09:46] LABS: CALCIUM 9.4 mg/dL (8.5-10.1); CREATININE 1.1 mg/dL (0.6-1.0); POTASSIUM 3.7 mmol/L (3.5-5.1)
[2020-04-02 10:02] LABS: LARGE PLATELETS FEW; PLATELET COUNT 79 thou/uL (150-400); PLATELET ESTIMATE DECREASED
[2020-04-02] MEDS ORDERED: ZOFRAN ODT4 MG PO (10:31)
[2020-04-02] MEDS ORDERED: MECLIZINE HCL25 MG PO (10:31)
[2020-04-02 11:29] VITALS: BP 130/54
--- NOTE | 2020-04-03 07:30 | EKG ---
[facility] [place] [address] ELECTROCARDIOGRAM REPORT Name: LIZ ARMIJO Room #: DEP [facility]#: [id number] Admission: 04/02/20 Attend Phys: Discharge: 04/02/20 Date of : 64 Report #: [id number] THIS REPORT FOR: cc: [facility] - Clinic physician unknown [facility] - Clinic physician unknown Hamlet Kenny MD [facility]GED [facility] ~ THIS REPORT FOR: //name// [facility] ED Test Date: 2020-04-02 Test Time: 09:03:20 Pat Name: LIZ ARMIJO Department: Room: Gender: F Air[employer] Defence [employer]: [facility] : 1960 Requested By: Tamia Yuan Order Number: [id number] MD: Hamlet Kenny Measurements Intervals [place] Rate: 65 P: 70 MD: 161 QRS: 22 QRSD: 89 T: 45 QT: 455 QTc: 474 Interpretive Statements Sinus rhythm Left atrial enlargement Compared to ECG 12/07/2018 17:33:59 Atrial abnormality now present Electronically Signed On 04-03-2020 7:30:21 CDT by Hamlet Kenny [email or web address] <ELECTRONICALLY SIGNED> By: Hamlet Kenny MD, FACC 04/03/20 0730 2 2 Hamlet Kenny MD, [facility] /EPI
== END 2020-04-02 11:33 | disposition home or self-care (01) ==
LOC: ER 08:43
PROVIDERS: Emergency Medicine
DX: R42 Dizziness and giddiness (principal); R11.0 Nausea; J44.9 Chronic obstructive pulmonary disease, unspecified; I50.9 Heart failure, unspecified; Z90.49 Acquired absence of other specified parts of digestive tract; Z79.899 Other long term (current) drug therapy; Z87.891 Personal history of nicotine dependence; Z88.1 Allergy status to other antibiotic agents; Z88.2 Allergy status to sulfonamides; Z88.8 Allergy status to other drugs, medicaments and biological substances

== ENCOUNTER 2020-04-09 19:23 | Emergency (ER) | payer OTHER ==
[~2020-04-09] VITALS: Ht 170.2 cm; Wt 65.8 kg
[~2020-04-09 19:23] MED LIST changes: +MECLIZINE HCL25 MG PO
[2020-04-09 21:27] VITALS: BP 123/63
== END 2020-04-09 21:27 | disposition home or self-care (01) ==
LOC: ER 19:23
DX: M25.561 Pain in right knee (principal); I50.9 Heart failure, unspecified; J44.9 Chronic obstructive pulmonary disease, unspecified; Z79.899 Other long term (current) drug therapy; Z87.891 Personal history of nicotine dependence; Z88.2 Allergy status to sulfonamides; Z88.8 Allergy status to other drugs, medicaments and biological substances; Z88.1 Allergy status to other antibiotic agents; Z90.49 Acquired absence of other specified parts of digestive tract; W18.39XA Other fall on same level, initial encounter; Y93.89 Activity, other specified; Y92.89 Other specified places as the place of occurrence of the external cause; Y99.8 Other external cause status

== ENCOUNTER 2020-12-04 22:20 | Emergency (ER) | payer OTHER ==
[~2020-12-04] VITALS: Ht 170.2 cm; Wt 63.5 kg
[2020-12-05] MEDS ORDERED: NORCO5 PO ×2 (01:01→01:02)
[2020-12-05] MEDS ORDERED: CEPHALEXIN500 MG PO (01:01)
[2020-12-05 01:09] VITALS: BP 156/73
== END 2020-12-05 01:12 | disposition still patient (30) ==
LOC: ER 22:20
DX: L03.115 Cellulitis of right lower limb (principal); F17.210 Nicotine dependence, cigarettes, uncomplicated; J44.9 Chronic obstructive pulmonary disease, unspecified; I50.9 Heart failure, unspecified; Z88.1 Allergy status to other antibiotic agents; Z88.2 Allergy status to sulfonamides; Z87.891 Personal history of nicotine dependence; Z79.899 Other long term (current) drug therapy

== ENCOUNTER 2021-05-04 13:39 | Inpatient (IN) | payer OTHER ==
[~2021-05-04] VITALS: Ht 167.6 cm; Wt 66.2 kg
--- NOTE | ~2021-05-04 | EMS ---
[address] [address] EMS Patient Care Report Name: LIZ ARMIJO Room #: 205-P [facility] IN M.R.#: [id number] Admission: 05/04/21 Attend Phys: Jeyson Zeng MD Discharge: 05/05/21 Date of : 64 Report #: [id number] THIS REPORT FOR: //name// Report Transmitted: 05/07/2021 09:48 EMS Care Summary [place], [place]/[facility] Incident [id number] @ 05/04/2021 13:12 Incident Location [address] [place] [address] Patient LIZ ARMIJO Female, 61 Years 1960 Patient Address [address] [place], [place] [id number] Patient History Congestive Heart Failure (CHF),Hypertension (HTN),Depression,Anxiety, Patient Allergies Sulfa, Patient Medications Xanax, Xarelto, Chief Complaint Chest Pain Disposition Transported No Lights/[place] Dispatch Reason Chest Pain (Non-Traumatic) Transported To [facility] Narrative M29 dispatched to a mosque for a chest pain. Upon arrival, M29 is met curbside by a 61 year old female who states she has been having chest pain since yesterday evening. Pt is A & O x4, GCS 15. Pt taken to ambulance, vitals taken. Pt transported nonemergency to [facility] without incident or [address] [place] [address] EMS Patient Care Report Name: LIZ ARMIJO Room #: 205-P [facility] IN M.R.#: [id number] Admission: 05/04/21 Attend Phys: Jeyson Zeng MD Discharge: 05/05/21 Date of : 64 Report #: [id number] change in pt condition. M29 in service. Initial Vitals @13:21P: 75,CO: 3,SpO2: 99, @13:23P: 77,BP: 107/71,SpO2: 97, @13:19P: 89,R: 20,BP: 128/82,Pain: 0/10,GCS: 15,SpO2: 98,Revised Trauma: 12, Assessments @13:27MENTAL:Place Oriented,Time Oriented,Person Oriented,Event Oriented,SKIN:HEENT:Head/Face: No Abnormalities,Neck/Airway: No Abnormalities,LUNG SOUNDS:General: No Abnormalities,Left Upper: No Abnormalities,Right Upper: No Abnormalities,Left Lower: No Abnormalities,Right Lower: No Abnormalities,ABDOMEN:General: No Abnormalities,Left Upper: No Abnormalities,Right Upper: No Abnormalities,Left Lower: No Abnormalities,Right Lower: No Abnormalities,PELVIS//GI:No Abnormalities,EXTREMITIES:Left Arm: No Abnormalities,Right Arm: No Abnormalities,Left Leg: No Abnormalities,Right Leg: No Abnormalities,PULSE:NEURO:No Abnormalities, Impression Chest Pain / Discomfort Procedures @13:27 ALS Assessment Response: UnchangedSucceeded Timeline 13:10,Call Received 13:10,Dispatch Notified 13:12,Dispatched 13:13,En Route 13:18,On Scene 13:18,At Patient 13:19,BP: 128/82 M,PULSE: 89,RR: 20 R,SPO2: 98 Ox,ETCO2: ,BG: ,PAIN: 0,GCS: 15, 13:21,BP: / M,PULSE: 75,RR: R,SPO2: 99 Ox,ETCO2: ,BG: ,PAIN: ,GCS: , 13:23,BP: 107/71 M,PULSE: 77,RR: R,SPO2: 97 Ox,ETCO2: ,BG: ,PAIN: ,GCS: , 13:24,Depart Scene 13:27,ALS Assessment,Response: UnchangedSucceeded, 13:36,At Destination 13:47,Call Closed Disclaimer v1.1 Copyright 2020 [employer] This EMS Care Summary contains data elements from the applicable legal record (which may be displayed differently). It is designed to provide pertinent information for the following purposes: continuity of care, clinical quality, and state data reporting. The complete [place] [address] EMS Patient Care Report Name: ZOFIALZICLAUDY RUSH Room #: 205-P [facility] IN M.R.#: [id number] Admission: 05/04/21 Attend Phys: Jeyson Zeng MD Discharge: 05/05/21 Date of : 64 Report #: [id number] and administrators of the receiving hospital in [facility]'s Patient Tracker. All data is provided "as is."
[~2021-05-04 13:39] MED LIST changes: +CEPHALEXIN500 MG PO; +NORCO5 PO
[2021-05-04 13:59] LABS: ABSOLUTE NEUTROPHILS 4.4 thou/uL (1.4-8.2); BASOPHILS 0.6 % (0.0-2.0); EOSINOPHILS 1.6 % (0.0-3.0); HEMATOCRIT 38.7 % (37.0-47.0); HEMOGLOBIN 12.7 gm/dL (12.0-15.0); LYMPHOCYTES 23.4 % (24.0-44.0); MCH 30.5 pg (26.0-34.0); MCHC 32.9 g/dL (28.0-37.0); MCV 92.9 fL (80.0-100.0); PLATELET COUNT 89 thou/uL (150-400); POLYS 67.4 % (36.0-66.0); RBC 4.16 mil/uL (4.20-5.00); RDW 12.9 % (10.5-14.5); WBC 6.6 thou/uL (4.0-11.0)
[2021-05-04] MEDS ORDERED: DESYREL150 MG PO (14:06)
[2021-05-04 14:13] LABS: CALCIUM 8.8 mg/dL (8.5-10.1); POTASSIUM 3.7 mmol/L (3.5-5.1)
[2021-05-04 14:15] LABS: APTT 49.9 Seconds (24.5-32.8); INR 1.12; PROTIME 12.1 Seconds (10.5-12.1)
[2021-05-04 14:20] LABS: ALBUMIN 3.5 g/dL (3.4-5.0); TOTAL BILIRUBIN 0.5 mg/dL (0.2-1.0); TOTAL PROTEIN 7.2 g/dL (6.4-8.2)
[2021-05-04 19:32] VITALS: BP 123/47
--- NOTE | 2021-05-04 20:00 | NUR ---
PT AN ADMISSION FROM EMERGENCY ROOM FOR CHEST PAIN. PT REPORTS PAIN STARTED LAST NIGHT. LUNGS ARE CLEAR ON ROOM AIR. ABDOMEN IS SOFT NON TENDER BOWEL SOUNDS HYPOACTIVE. PT WANTINNG PAIN MEDS DUE TO CHEST PAIN AND HEADACHE PAIN SHE RATES A 8. PLACED ON THE COLD ROLL PACKER SHEET IRON AND ADMISION CHARTING STARTED ON PT UPON ARIVAL. PT REPORTS TRYING TO WEAN HERSELF OFF HER XANAX PILLS SHE TAKES FOR ANXIETY. CAREPLAN AND CONSENT SIGNED AND PLACED IN CHART.
[2021-05-04 20:15] VITALS: BP 128/72
--- NOTE | 2021-05-04 21:44 | NUR ---
PAGED DR. MARION CARDIOGY DUE TO CONSULT. EKG SINUS RHYTHM WILL MEDICATE WITH TYLENOL FOR DISCOMFORT FOR PT AT THIS TIME. AFTER TYLNEOL GIVEN PT SLEEPING NO COMPLAINTS NOTED OF CHEST PAIN. ONGOING CARE AND CALL LIGHT WITHIN REACH NEEDED.
[2021-05-05 00:24] VITALS: BP 105/59
[2021-05-05 03:50] VITALS: BP 123/70
[2021-05-05 05:53] LABS: CALCIUM 8.7 mg/dL (8.5-10.1)
[2021-05-05 07:15] VITALS: BP 117/66
[2021-05-05 11:25] VITALS: BP 92/56
--- NOTE | 2021-05-05 12:23 | NUR ---
Pt ADMITTED FOR CHEST PAIN. REPORTS PAIN IS MORE IN HER BACK NOW. SITTING AT [facility] UPON PT ARRIVAL. Pt DOES NOT USE GAIT AIDS AND REPORTS THAT SHE DOES NOT NEED PHYSICAL THERAPY. CONFIRMED W/ RN THAT Pt HAS BEEN UP AD WALLY. Pt STATED "I APPRECIATE YOU COMING BUT FIND SOMEONE ELSE." ACUTE PT TO SIGN OFF.
--- NOTE | 2021-05-05 14:06 | NUR ---
ASSESSMENT CHARTED - MEDS PER AUG - PT SAMANTHA DIET AND FLUIDS. UP AD WALLY IN ROOM - CALLING OUT ABOUT WHEN SHE WOULD GO HOME - INFORMED MULTIPLE TIMES THAT I DID NOT HAVE AN ORDER AND THAT DR ANDERSON NEEDED TO SEE PT - PT CALLED OUT AND TOLD VISCOSITY INSPECTOR THAT I NEEDED TO GET IN THERE BECAUSE SHE WANTED TO GO HOME - INFORMED HER AGIAN THAT I DID NOT HAVE ORDERS AND WOULD LET HER KNOW WHEN I DID. PT CALLING OUT [employer] EVERY 15 MINUTES STATING SHE WANTED TO GO HOME - KENNETH SERVIN SAID THAT SHE COULD - EACH TIME INFORMED THAT I NEEDED TO GET ORDERS. PT CALLED OUT AGAIN AND WNET INTO ROOM AND FOUND HER HALF DRESSED WITH MONITOR OFF - INFORMED PATIENT THAT I STILL DID NOT HAVE ORDERS FOR PATIENT TO LEAVE - INFORMED THAT SHE NEEDED TO LEAVE AND SHE WAS LEAVING SHE HAS A CAT AT HOME. I SEAD UNTIL I HAD ORDERES SHE NEEDED TO BE PLACED BACK ON THE MONITOR SHE STATED HE HAD BEEN OFF IT FOR 20 MINUTES AND NO ONE NOTICED . I CHECKED MONITOR PRIOR TO PATIENT LEAVING UNIT AND SHE HAD BEEN OFF THE MONITOR A TOTAL OF 12 MINUTES AND I HAD BEEN IN THE ROOM FOR A LARGE AMOUNT OF THAT TIME. SHE WAS NOT HAPPY WHEN INFORMED OF THIS INFORMATION - PT INFOMRED THAT SHE WOULD HAVE TO LEAVE AMA IF I DID NOT HAVE ORDERS - CONTINUED TO SAY SHE HAD TO GET HOME TO CAT - WANTED TO KNOW HOW LONG IT WOULD TAKE FOR DR TO PLACE ORDERS - JUSTIN HAD SAID HE WOULD TALK TO DR MONTESINOS AND LET HIM KNOW IT WAS OKAY TO LEAVE - INFORMED HER ONCE THIS HAD OCCURRED THAT THE DR WOULD PLACE THE ORDERS - SHE STATED SHE WAS NOT WAITING AROUND. SHE WAS LEAVING - IV REMOVED - AMA PAPERS SIGNED PT LEFT UNIT AMBULATORY - WITH BELONGINGS.
--- NOTE | 2021-05-05 23:44 | 2DMMODE ---
[facility] [address] [place] [address] 2 D/M-MODE ECHOCARDIOGRAM Name: LIZ ARMIJO Room #: 205-P [facility] IN M.R.#: [id number] Admission: 05/04/21 Attend Phys: Jeyson Zeng MD Discharge: 05/05/21 Date of : 64 Report #: [id number] THIS REPORT FOR: cc: [facility] - Clinic physician unknown [facility] - Clinic physician unknown Hari Dallas MD ~ APPROVED REPORT Study performed: 05/05/2021 10:25:07 EXAM: Comprehensive 2D, Doppler, and color-flow Echocardiogram Patient Location: In-Patient Room #: [facility] BSA: 1.73 HR: 57 bpm BP: 123/70 mmHg Rhythm: NSR Other Information Study Quality: Good Indications Chest Pain 2D Dimensions RVDd: 29.52 mm IVSd: 12.73 (7-11mm) LVOT Diam: 18.96 (18-24mm) LVDd: 49.65 mm PWd: 13.29 (7-11mm) Ascending Ao: 33.66 (22-36mm) LVDs: 30.50 (25-40mm) Left Atrium: 35.23 (27-40mm) Aortic Root: 28.77 mm Volumes Left Atrial Volume (Systole) Single Plane 4CH: 40.13 mL Single Plane 2CH: 27.44 mL Biplane LA Volume: 40.00 mL LA ESV Index: 23.00 mL/m2 Aortic Valve AoV Peak Paddy.: 3.78 m/s AO Peak Gr.: 57.19 mmHg LVOT Max P.83 mmHg AO Mean Gr.: 31.87 mmHg LVOT Mean P.40 mmHg AO V2 Mean: 2.66 m/s LVOT Max V: 1.49 m/s [facility] [address] [place] [address] 2 D/M-MODE ECHOCARDIOGRAM Name: LIZ ARMIJO Room #: [address] [place] [address] IN M.R.#: [id number] Admission: 05/04/21 Attend Phys: Jeyson Zeng MD Discharge: 05/05/21 Date of : 64 Report #: [id number] AO V2 VTI: 107.25 cm LVOT Mean V: 1.09 m/s AIDA (VTI): 1.19 cm2 LVOT V1 VTI: 45.15 cm AIDA Vmax: 1.11 cm2 AI Vmax: 4.08 m/s SV (LVOT): 127.47 mL AI [place]: 1.78 m/s2 AI PHT: 664.39 ms Mitral Valve E/A Ratio: 0.8 MV Decel. Time: 1036.87 ms MV E Max Paddy.: 0.42 m/s MV A Paddy.: 0.54 m/s MV PHT: 300.69 ms Pulmonary Valve PV Peak Paddy.: 0.76 m/s PV Peak Gr.: 2.30 mmHg Pulmonary Vein P Vein S: 0.59 m/s P Vein A: 0.16 m/s P Vein D: 0.37 m/s P Vein A Dur.: 106.1 msec P Vein S/D Ratio: 1.59 Tricuspid Valve TR Peak Paddy.: 2.53 m/s RAP Estimate: 10.00 mmHg TR Peak Gr.: 25.62 mmHg RVSP: 35.00 mmHg Left Ventricle The left ventricle is normal size. There is normal LV segmental wall motion. Mild concentric left ventricular hypertrophy. Left ventricular systolic function is normal. The left ventricular ejection fraction is within the normal range. LVEF is 60-65%. Transmitral Doppler flow pattern suggests impaired LV relaxation. Right Ventricle The right ventricle is normal size. Right ventricle is mildly hypokinetic. Atria The left atrium size is normal. The right atrium size is normal. Aortic Valve Aortic valve is bicuspid. Moderate aortic regurgitation. Moderate aortic stenosis. Highest mean aortic valve gradient is 32_mmHg. Peak aortic valve gradient is _57_mmHg. Calculated AIDA by the [facility] [address] [place] [address] 2 D/M-MODE ECHOCARDIOGRAM Name: LIZ ARMIJO Room #: 205-P DIS IN M.R.#: [id number] Admission: 05/04/21 Attend Phys: Jeyson Zeng MD Discharge: 05/05/21 Date of : 64 Report #: [id number] equation is _1.2___cm2. Mitral Valve The mitral valve is normal in structure. Mild mitral regurgitation. No evidence of mitral valve stenosis. Tricuspid Valve The tricuspid valve is normal in structure. Mild tricuspid regurgitation. PAP 35 mmHg. Pulmonic Valve The pulmonary valve is normal in structure. There is no pulmonic valvular regurgitation. Great Vessels The aortic root is normal in size. IVC is dilated and collapses <50% with inspiration. Pericardium Prominent anterior epicardial fat pad is present. There is no pleural effusion. <Conclusion> The left ventricle is normal size. Mild concentric left ventricular hypertrophy. LVEF is 60-65%. The left atrium size is normal. Aortic valve is bicuspid. Moderate aortic regurgitation. Moderate aortic stenosis. Highest mean aortic valve gradient is 32_mmHg. Peak aortic valve gradient is _57_mmHg. Calculated AIDA by the continuity equation is _1.2___cm2. The mitral valve is normal in structure. Mild mitral regurgitation. The tricuspid valve is normal in structure. Mild tricuspid regurgitation. PAP 35 mmHg. The pulmonary valve is normal in structure. The aortic root is normal in size. Prominent anterior epicardial fat pad is present. <ELECTRONICALLY SIGNED> By: Hari Dallas MD 05/05/21 2344 [id number] Hari Dallas MD /INF
--- NOTE | 2021-05-07 07:31 | EKG ---
[address] [employer] [address] ELECTROCARDIOGRAM REPORT Name: LIZ ARMIJO Room #: 205-P [facility] IN M.R.#: [id number] Admission: 05/04/21 Attend Phys: Jeyson Zeng MD Discharge: 05/05/21 Date of : 64 Report #: [id number] [facility] ED Test Date: 2021-05-04 Test Time: 13:50:08 Pat Name: LIZ ARMIJO Department: Room: [facility] Gender: F Customer Solutions Architect: Elmer RATLIFF : 1960 Requested By: Bam Medina Order Number: [id number] MD: Hamlet Kenny Measurements Intervals [place] Rate: 67 P: 68 [place]: 154 QRS: 6 QRSD: 88 T: 23 QT: 421 QTc: 445 Interpretive Statements Sinus rhythm Left atrial enlargement Compared to ECG 04/02/2020 09:03:20 No significant changes Electronically Signed On 05-07-2021 7:31:42 CORE FEEDER by Hamlet Kenny [email or web address] <ELECTRONICALLY SIGNED> By: Hamlet Kenny MD, [facility] 05/07/21 0731 1350 1350 Hamlet Kenny MD, FACC /EPI
--- NOTE | 2021-05-07 07:34 | EKG ---
[address] [address] ELECTROCARDIOGRAM REPORT Name: LIZ ARMIJO Room #: 205-P [facility] IN M.R.#: [id number] Admission: 05/04/21 Attend Phys: Jeyson Zeng MD Discharge: 05/05/21 Date of : 64 Report #: [id number] [facility] Test Date: 2021-05-05 Test Time: 07:37:29 Pat Name: LIZ ARMIJO Department: Room: [facility] Gender: F Timber Cutter: SG : 1960 Requested By: Jeyson Zeng Order Number: [id number] MD: Hamlet Kenny Measurements Intervals [place] Rate: 55 P: 78 ID: [id number] QRS: 24 QRSD: 96 T: 41 QT: 470 QTc: 450 Interpretive Statements Sinus rhythm Left atrial enlargement Abnormal R-wave progression, late transition Compared to ECG 05/04/2021 13:50:08 No significant changes Electronically Signed On 05-07-2021 7:34:46 DIRECTOR OPERATING by Hamlet Kenny [email or web address] <ELECTRONICALLY SIGNED> By: Hamlet Kenny MD, [facility] 05/07/2134 6 6 Hamlet Kenny MD, FAC /EPI
== END 2021-05-05 14:12 | disposition left against medical advice (07) | DRG 292 ==
LOC: ER 13:39 → EROBS 16:10 → 2N 19:46
PROVIDERS: Emergency Medicine; ADMIT Internal Medicine; ATTEND Internal Medicine
DX: I11.0 Hypertensive heart disease with heart failure (principal); D68.59 Other primary thrombophilia; I24.8 Other forms of acute ischemic heart disease; I50.32 Chronic diastolic (congestive) heart failure; Z20.822 Contact with and (suspected) exposure to COVID-19; F32.9 Major depressive disorder, single episode, unspecified; F17.210 Nicotine dependence, cigarettes, uncomplicated; J44.9 Chronic obstructive pulmonary disease, unspecified; F41.1 Generalized anxiety disorder; Z53.29 Procedure and treatment not carried out because of patient's decision for other reasons; J45.909 Unspecified asthma, uncomplicated; Z90.49 Acquired absence of other specified parts of digestive tract; Z88.1 Allergy status to other antibiotic agents; Z88.2 Allergy status to sulfonamides; Z79.899 Other long term (current) drug therapy; Z82.49 Family history of ischemic heart disease and other diseases of the circulatory system; Z86.711 Personal history of pulmonary embolism; Z86.718 Personal history of other venous thrombosis and embolism; Z88.8 Allergy status to other drugs, medicaments and biological substances
CPT/HCPCS: 10081